=== PATIENT | female | born 1970 | race American Indian/Alaskan Native ===

== ENCOUNTER 2019-01-27 14:43 | Emergency (ER) | payer OTHER ==
[2019-01-27 15:15] VITALS: BP 123/75
[2019-01-27] MEDS ORDERED: predniSONE 20 MG TAB PO ONE (15:54)
[2019-01-27] MEDS ORDERED: HYDROcodone/ACETAMINOPHEN 5-325 MG TAB PO ONE ×2 (15:54→16:35)
[2019-01-27] MEDS ORDERED: CYCLOBENZAPRINE 10 MG TAB PO ONE (15:54)
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
== END 2019-01-27 16:56 | disposition home or self-care (01) ==
LOC: ED 14:43
DX: M79.18 Myalgia, other site (principal); V89.2XXA Person injured in unspecified motor-vehicle accident, traffic, initial encounter; Y93.89 Activity, other specified; Y92.410 Unspecified street and highway as the place of occurrence of the external cause; Y99.8 Other external cause status
CPT/HCPCS: 99282; J7512